=== PATIENT | female | born 1985 | race Caucasian/White ===

== ENCOUNTER 2016-11-06 11:10 | Emergency (ER) | payer OTHER ==
[~2016-11-06] VITALS: Ht 175.3 cm; Wt 116.0 kg
[~2016-11-06 11:10] MED LIST: ALBUTEROL SULF8.5 GM IH; ASPIR-LOW81 MG PO; CRESTOR20 MG PO; CYCLOBENZAPRINE10 MG PO; DAY TIME CO5 MG/5 ML PO; DICLOFENAC SODI50 MG PO; ENDOCET 5-3251 EACH PO; FLEXERIL10 MG PO; HYCODAN SYRUP480 ML PO; LEVAQUIN750 MG PO; MOTRIN IB200 MG PO; MOTRIN600 MG PO; Motrin PO; NATALCARE RX1 TABLE1 PO; OMEPRAZOLE20 MG PO; PAIN RELIEF EX500 MG PO; PERCOCET 5/31 TABLET PO; PREDNISONE20 MG PO; SPIRIVA1 INHALATI IH; TESSALON PERLE100 MG PO; TYLENOL EXTRA500 M1 PO; VENTOLIN HFA18 GM IH; ZITHROMAX Z-PA250 MG PO; ZOFRAN4 MG PO
[2016-11-06 12:27] LABS: MCH 29.6 PG (29.0-34.0); MCHC 33.7 G/DL (30.0-36.0); MCV 87.8 FL (83-99); MEAN PLAT.VOLUME 9.9 uM^3 (9.5-12.4); PLATELET COUNT 210 K/uL (156-360); RBC DIS.WIDTH-CV 12.8 % (11.8-14.6); RBC DIS.WIDTH-SD 39.9 % (39-53); RED BLOOD COUNT 4.33 M/uL (3.80-5.20); WHITE BLOOD COUNT 5.5 K/uL (4.1-10.2)
[2016-11-06 12:38] LABS: CHLORIDE 106 mEq/L (99-109); POTASSIUM 3.7 mEq/L (3.7-5.4); SODIUM 139 mEq/L (136-147)
[2016-11-06 12:40] LABS: GLUCOSE 95 mg/dL (70-99)
[2016-11-06 12:41] LABS: ANION GAP 10 MEQ/L (2-14)
[2016-11-06 12:44] LABS: GFR ESTIMATE (CALCULATED) > 59 mL/min/
[2016-11-06 12:45] LABS: UREA NITROGEN (BUN) 6 mg/dL (9-23)
[2016-11-06] MEDS ORDERED: MELOXICAM15 MG PO (13:54)
[2016-11-06] MEDS ORDERED: OMEPRAZOLE40 M1 PO (13:54)
[2016-11-06] MEDS ORDERED: HYDROCODON-ACE1 EAC7 PO (13:55)
[2016-11-06 13:59] LABS: ADD MIUA? YES; BILIRUBIN NEGATIVE; BLOOD NEGATIVE; COLOR YELLOW ((YELLOW)); GLUCOSE (STRIP) NEGATIVE; KETONES NEGATIVE; LEUKOCYTES LARGE; NITRITE NEGATIVE; PROTEIN (STRIP) NEGATIVE; SPECIFIC GRAVITY 1.003 (1.000-1.030); UROBILINOGEN 0.2 MG/DL (0.2-1.0)
[2016-11-06 14:30] LABS: BACTERIA 1+; CASTS NONE SEEN /LPF; CRYSTALS NONE SEEN; EPITHELIAL CELLS 1+; MUCUS NONE SEEN; PATHOLOGICAL CAST NONE SEEN; SMALL ROUND CELL NONE SEEN; WHITE BLOOD CELLS 40-50 /HPF (0-5); YEAST-LIKE CELL NONE SEEN
[2016-11-06] MEDS ORDERED: PREDNISONE20 MG PO (15:51)
[2016-11-06] MEDS ORDERED: VENTOLIN HFA18 GM IH (15:51)
[2016-11-06] MEDS ORDERED: ZITHROMAX250 MG PO (15:51)
[2016-11-06 16:31] VITALS: BP 109/59
== END 2016-11-06 16:33 | disposition home or self-care (01) ==
LOC: EME 11:10
PROVIDERS: Physician Assistant
DX: J18.0 Bronchopneumonia, unspecified organism (principal); K21.9 Gastro-esophageal reflux disease without esophagitis; G89.29 Other chronic pain
CPT/HCPCS: 71020; 80048; 81003; 85027; 94640; 99281; 99284; J7512

== ENCOUNTER 2017-10-06 13:09 | Emergency (ER) | payer OTHER ==
[~2017-10-06] VITALS: Ht 175.3 cm; Wt 116.8 kg
[~2017-10-06 13:09] MED LIST changes: +HYDROCODON-ACE1 EAC7 PO; +MELOXICAM15 MG PO; +OMEPRAZOLE40 M1 PO; +ZITHROMAX250 MG PO
[2017-10-06] MEDS ORDERED: FLEXERIL10 MG PO (14:31)
[2017-10-06] MEDS ORDERED: MOTRIN800 MG PO (14:31)
[2017-10-06 14:51] VITALS: BP 117/68
== END 2017-10-06 14:52 | disposition home or self-care (01) ==
LOC: EME 13:09
DX: M54.5 Low back pain (principal); M25.521 Pain in right elbow; W19.XXXA Unspecified fall, initial encounter; Y92.811 Bus as the place of occurrence of the external cause; G89.29 Other chronic pain; M51.36 Other intervertebral disc degeneration, lumbar region
CPT/HCPCS: 72100; 72220; 73080; 99281; 99284

== ENCOUNTER 2017-12-05 11:18 | Emergency (ER) | payer OTHER ==
[~2017-12-05] VITALS: Ht 175.3 cm; Wt 120.6 kg
[~2017-12-05 11:18] MED LIST changes: +MOTRIN800 MG PO
[2017-12-05 12:09] LABS: HEMOGLOBIN 12.7 G/DL (11.9-15.5); MCHC 33.4 G/DL (30.0-36.0); MCV 89.6 FL (83-99); PLATELET COUNT 203 K/uL (156-360); RBC DIS.WIDTH-CV 12.8 % (11.8-14.6); RBC DIS.WIDTH-SD 41.9 % (39-53); RED BLOOD COUNT 4.24 M/uL (3.80-5.20); WHITE BLOOD COUNT 5.9 K/uL (4.1-10.2)
[2017-12-05 12:19] LABS: CHLORIDE 102 mEq/L (99-109); POTASSIUM 3.7 mEq/L (3.7-5.4); SODIUM 138 mEq/L (136-147)
[2017-12-05 12:20] LABS: D-DIMER ELISA < 150.00 ng/mLDDU (<230)
[2017-12-05 12:21] LABS: GLUCOSE 86 mg/dL (70-99)
[2017-12-05 12:25] LABS: CREATININE 0.7 mg/dL (0.6-1.3); GFR ESTIMATE (CALCULATED) > 59 mL/min/
[2017-12-05 12:26] LABS: UREA NITROGEN (BUN) 9 mg/dL (9-23)
[2017-12-05 12:31] LABS: TROP-I INTERPRETATION NEGATIVE; TROPONIN-I < 0.01 ng/mL (0.0-0.30)
[2017-12-05 12:33] LABS: QUANTITATIVE HCG < 4.0 MIU/ML
[2017-12-05 15:36] LABS: TROP-I INTERPRETATION NEGATIVE; TROPONIN-I < 0.01 ng/mL (0.0-0.30)
[2017-12-05] MEDS ORDERED: MUCINEX1200 MG PO (15:48)
[2017-12-05 16:02] VITALS: BP 125/74
== END 2017-12-05 16:02 | disposition home or self-care (01) ==
LOC: EME 11:18
PROVIDERS: Physician Assistant Medical
DX: J10.1 Influenza due to other identified influenza virus with other respiratory manifestations (principal); J45.909 Unspecified asthma, uncomplicated; K21.9 Gastro-esophageal reflux disease without esophagitis; Z91.040 Latex allergy status
CPT/HCPCS: 71046; 80048; 84484; 84702; 85027; 85379; 87502; 93005; 94640; 94640 76; 99281; 99285